=== PATIENT | male | born 1990 | race Asian ===

== ENCOUNTER 2022-09-28 09:28 | Outpatient (CLI) | payer OTHER ==
--- NOTE | 2022-09-28 10:43 | Sleep Patient Instructions ---
Sleep Center Visit Summary - Patient Visit Information Reason for Visit: Initial evaluation for sleep disordered breathing and other sleep issues. - Patient Instructions Instructions Attached: Sleep Study, Sleep Clinic Visit Additional Instructions: Patient will complete a sleep study, either an in-lab polysomnography (PSG) or home sleep study (HST). They will follow-up in office after the sleep study is completed to hear the results and talk about therapy if needed. Patient will be called by office staff to schedule this appointment but may contact us with any questions. - Clinic Information Contact: [facility] [address] [place] [address] [email or web address] T: [phone]
--- NOTE | 2022-09-28 10:45 | SLEEP CARE CONSULTATION ---
Information from patient questionnaire entered by Demetrice Reyes. I have reviewed and concur with the information entered by Demetrice Reyes. This document represents the service I personally performed and the decisions made by me, Ai Arauz ARNP. History of Present Illness Service Date and Time: 09/28/2022927 Reason for Visit: New patient Chief Complaint: reports: Insomnia, Observed pauses in breathing, Fatigue, Frequent awakenings at night Date of Onset: 18 MONTHS Usual bedtime: MIDNIGHT Time it takes to fall asleep: 2HRS Snores at night: Yes Observed to quit breathing while asleep: Yes Sleeps alone due to snoring: Yes Number of times waking at night: 1-2 Reasons for waking at night: reports: Choking, Snoring, Gasping for air (sometimes), Pain Toss, Turn, or Twitch while sleeping: Yes Recalls having dreams: Yes Usually gets out of bed at: 6AM Feels refreshed in the morning: No Morning headache: Yes (head injury in 2020, has headaches since) Sleepy or fatigued during the day: Yes Ever fallen asleep while driving: Yes (drowsy driving; no accidents) Takes day naps: Yes ( rarely; usually only on weekends) Dreams during day naps: Yes Prior sleep studies: No Additional HPI information: I had the pleasure of seeing LEIGH ANN MAHER today regarding the possibility of him having a sleep disorder. His current complaints are snoring, insomnia, observed pauses in breathing, fatigue and frequent night awakenings. Patient primary language is Mandarin Taiwanese and an home care and home health aides teacher was utilized for adequate communication. Help Desk Intern # Vania, [id number]. He states his tells him that he snores "extremely loud" and that he is stopping breathing. He states his sleep duration is low. It is hard for him to fall asleep, about 2 hours. He states he works long shifts sometimes and he is able to go to sleep quicker. - Parasomnia Symptoms Ever been unable to move upon waking from sleep: Yes (couple times) Walks in sleep: Yes (not recently, according to ) Talks in sleep: Yes Ever acted out dreams in sleep: Yes Ever felt weak in the knees when startled or emotional: Yes Bothered by creepy, crawly, restless sensations in legs: Yes (mornings mostly) Problems with memory or concentration: Yes (memory not very good; poor concentration too) Subjective Initial [place] Sleepiness Scale score: 19 (09/28/22) Past Medical History Past Medical History: reports: Fibromyalgia, Anxiety, Depression, Mood disorder Social History The patient's occupation is a AM. Patient is and lives in . Have you smoked in the past 12 months: No Alcohol use: No Caffeine use: Yes Caffeine amount and frequency: 2 CUPS DAILY Family History Family history of sleep disordered breathing: Yes Family Hx Sleep Apnea: Mother: Snoring, Sleep apnea - Untreated, Father: Snoring, Sleep apnea - Untreated, Grandparent: Snoring, Sleep apnea - Untreated Allergies and Home Medications Known drug allergies: No Drug allergies reviewed: Yes Home medication list reviewed: Yes Allergy and home medication list: Medications: Cymbalta Amitriptyline Review of Systems Cardiovascular: reports: chest pain, leg or foot swelling Respiratory: reports: shortness of breath, sputum production, chronic cough Gastrointestinal: reports: nausea, vomitting, diarrhea Urinary: reports: urgency Neurological: reports: headaches, seizure, head trauma, disorientation, speech dysfunction, gait or balance problems, fainting or unconsciousness Psychiatric: reports: Attention Deficit Hyperactivity, anxiety, depression, mood disorder, claustrophobia Ear/Nose/Throat: reports: dry mouth/throat. denies: tonsillectomy Endocrine: reports: sluggishness, excessive thirst Musculoskeletal: reports: joint pain, neck pain, back pain, muscle pain or cramping, mobility problems Physical Exam Vital signs obtained and entered by: DEMETRICE Yan MA Blood Pressure: 114/76 (LEFT ARM) Cuff size: regular Heart Rate: 78 O2 Saturation: 98 Height: 5 ft 10 in Weight: 198 lb 9.6 oz Body Mass Index: 28.5 BMI Classification: Overweight Neck circumference: 16.25 Mouth and throat: narrow oropharynx Soft palate: long Hard palate: normal Uvula: normal Uvula visualization: 0% Mallampati Class IV Tongue: enlarged in size with teeth mosqueda on lateral edges Tonsils: 2+ Neck: normal w/o lymphadenopathy or thyromegaly Heart: regular rate and rhythm Lungs: clear bilaterally Impression and Plan 1. Suspected Obstructive Sleep Apnea-Hypopnea Syndrome, as suggested by a history of loud and irregular snoring, observed cessation of breath while asleep, gasping or choking in sleep, frequent awakening during the night, unrefreshed sleep, cognitive impairment, and excessive daytime sleepiness. Narrow oropharynx and obesity are common predisposing factors for obstructive sleep apnea-hypopnea syndrome. I recommend proceeding to polysomnography to confirm the diagnosis and to assess severity. If the patient has significant sleep disordered breathing, a manual CPAP titration study will also be performed to find the optimal treatment pressure. I informed the patient of what the sleep studies involve and after some discussion, obtained agreement to proceed. The pathophysiology of obstructive sleep apnea-hypopnea syndrome was discussed with the patient and health risks of cardiovascular and cerebrovascular disease if not treated. Risks of drowsy driving discussed in detail and patient advised to avoid long distance driving and to cake puller at the first sign of drowsiness. Patient agreed to plan. * Schedule polysomnography +- manual CPAP titration study and return in 1-2 weeks after the study to discuss result and initiate therapy. * Avoid long distance driving or driving when feeling sleepy. * Avoid alcohol, sedative and muscle relaxant around bedtime. * Attempt to lose weight. * Review instructions provided by trained office staff on how to prepare for the sleep study. * Return for follow-up after sleep study completed. Counseling Topics: Weight loss health impact Visit Type: In Office Time Spent with Patient (minutes): 35 Provider Statement: I spent 100% of the Face to Face Visit with the patient with greater than 50% spent counseling the patient and coordination of care.
[2022-09-28 10:53] VITALS: BP 114/76
== END 2022-09-28 09:29 | disposition home or self-care (01) ==
LOC: SC 09:28
PROVIDERS: ATTEND Nurse Practitioner Family
DX: R06.83 Snoring (principal); G47.8 Other sleep disorders; R06.81 Apnea, not elsewhere classified; G47.10 Hypersomnia, unspecified; F32.A Depression, unspecified; E66.3 Overweight; Z68.28 Body mass index [BMI] 28.0-28.9, adult
CPT/HCPCS: 99203; 99212

== ENCOUNTER 2022-11-23 09:20 | Outpatient (CLI) | payer OTHER | END 2022-11-23 09:21 | disposition home or self-care (01) | LOC: SC 09:20 | PROVIDERS: ATTEND Nurse Practitioner Family | DX: R09.02 Hypoxemia (principal) | CPT/HCPCS: 95806 ==

== ENCOUNTER 2023-03-17 09:48 | Outpatient (CLI) | payer OTHER ==
--- NOTE | 2023-03-17 10:17 | Sleep Patient Instructions ---
Sleep Center Visit Summary - Patient Visit Information Reason for Visit: Sleep study followup - Patient Instructions Instructions Attached: Snoring Tips Prevent Additional Instructions: Your sleep study today was negative for significant sleep disordered breathing. You were found to have episodes of snoring. There are different ways to control snoring including weight loss, oral devices made by a dentist or surgical options through ENT specialist. You should not use oral devices that do not fit properly because they can affect your bite. You should also check insurance coverage of oral devices for snoring because they may not be cover well. You may obtain a referral to an ENT specialist through your primary provider. Follow-up as needed. - Clinic Information Contact: [facility] [address] [place] [address] [email or web address] T: [phone]
--- NOTE | 2023-03-17 10:21 | SLEEP CARE CONSULTATION ---
Information from patient questionnaire entered by Demetrice Reyes. I have reviewed and concur with the information entered by Demetrice Reyes. This document represents the service I personally performed and the decisions made by , Ai Arauz ARNP. History of Present Illness Service Date and Time: 03/17/2023 0948 Initial [place] Sleepiness Scale score: 19 (09/28/22) Current [place] Sleepiness Scale score: 17 Additional HPI information: LEIGH ANN MAHER returns for follow up and results of the recently performed home sleep study. He speaks Madarin and an medical interpreter through [employer] was used for effective communication, Sasha ID# [id number]. The patient was informed of the following findings: No significant sleep disordered breathing with an average AHI of 1.5 and misty oxygen saturation of 86% which was probable artifact. I explained the pathophysiology behind obstructive sleep apnea. Patient does not have sleep apnea and was advised how weight gain could increase the risk of developing sleep apnea in the future. Patient has light snoring. Snoring can be reduced by weight loss. Weight loss is best achieved with diet consult. Patient instructed to contact PCP for referral. Snoring can also be treated with an oral appliance from a dentist. Advised to check insurance coverage. In addition, an ENT evaluation can be do to see if other treatment is indicated. Patient counseled not drink alcohol less than 4 hours before bedtime as it can increase snoring and apnea. Patient was cautioned about risks of drowsy driving until sleepiness symptoms resolve. Sleep Study - Results Type of Sleep Study: Home sleep study (COMPLETED ON 11/24/22) Prior sleep studies: No Polysomnography/Home Sleep Study results: Physician Impression: The quality of the study is good. The length of the study is not optimal (< 240 minutes). Please also see the tabulated and graphic data. 1. No significant sleep disordered breathing, with an AHI of 1.5/hr and misty SaO2 of 86%. During the study, the patient had 1 apnea (1 obstructive, 0 central, 0 mixed) and 4 hypopneas. The longest episode lasted 93.0 seconds. The patient slept adequately in supine position (supine AHI was 2.4 and non-supine, 0.63). 2. Hypoxemia (ICD-10 R09.02), mild, with the lowest oxygen saturation of 86 % and 48.7 minutes with SaO2 under 90%. Baseline oxygen saturation was normal (Average oxygen saturation was 93%). The low oxygen saturation appears to be an artifact judging the sudden drop from 97% to 89% after a movement. Allergies and Home Medications Known drug allergies: No Drug allergies reviewed: Yes Home medication list reviewed: Yes (stopped amitriptyline) Allergy and home medication list: Allergies No Known Drug Allergies Allergy (Verified 03/16/23 09:04) New Medications: Gabapentin 600 mg daily Verapamil 120 mg daily Sumatriptan 100 mg as needed Naproxen 500 mg 2 daily Meloxicam 7.5 mg daily Emgality Pen as needed Review of Systems Review of systems same as previous: Yes (no changes) Physical Exam Vital signs obtained and entered by: AI RAMON Height: 5 ft 10 in Weight: 190 lb 9.6 oz Body Mass Index: 27.3 BMI Classification: Overweight Impression and Plan 1. Insomnia, sleep onset. Insomnia is generally caused by an irregular sleep schedule, spending too much time in bed, napping, caffeine, electronics, lack of a relaxing bedtime ritual and clock watching. Other factors can include anxiety/depression, pain, medications, and obstructive sleep apnea. First I counseled the patient on the importance of a regular sleep schedule, starting with the wake time. I explained the homestatic sleep drive and how maintaining a regular wake time will allow the patient to be tired enough to sleep 15-16 hours later. By waking at the same time, the patient will also feel more alert. Naps are to be avoided unless overcome by sleepiness. Then naps are to be restricted to one hour and before 3 pm so as not to interfere with nighttime sleep. Most caffeine is to be stopped after lunch as it has a 6 hour half life and reduce sleep latency and efficiency. In addition, it is important to have a relaxing ritual about 30-60 minutes before bedtime to allow the mind/body transition from an active day to sleep. [facility] How to Sleep Better pamphlet given and reviewed. A sleep diary will be completed for the next 2 weeks to assist implementation of recommendations and for further evaluation of sleep concerns. 2. Snoring but no significant sleep disordered breathing. Patient advised that often weight loss will reduce snoring as well as apnea risk. An oral appliance can also be used for snoring. This would require a dental consultation. Patient cautioned not to use other online appliances as can cause bite issues. Patient is advised to check if insurance will cover. An ENT consult can also be helpful to determine if any other treatment is an option. * Attempt to lose weight, BMI 27.3 * Avoid alcohol consumption near bedtime * The patient is cautioned about driving until sleepiness is completely resolved. * Return as needed for follow up. Counseling Topics: Weight loss health impact Visit Type: In Office Time Spent with Patient (minutes): 23 Provider Statement: I spent 100% of the Face to Face Visit with the patient with greater than 50% spent counseling the patient and coordination of care.
== END 2023-03-17 09:49 | disposition home or self-care (01) ==
LOC: SC 09:48
PROVIDERS: ATTEND Nurse Practitioner Family
DX: G47.00 Insomnia, unspecified (principal); R06.83 Snoring; E66.3 Overweight; Z68.27 Body mass index [BMI] 27.0-27.9, adult
CPT/HCPCS: 99212; 99213